=== PATIENT | female | born 1990 | race Caucasian/White ===

== ENCOUNTER 2021-06-16 16:00 | Outpatient (CLI) | payer OTHER, SELFPAY ==
--- NOTE | ~2021-06-16 | US_ITS ---
EXAMINATION: US OB /maternal detail DATE: 06/16/2021 17:39 INDICATION: Encounter for screening. TECHNIQUE: Real-time ultrasound of the pelvis was performed. COMPARISON: None. FINDINGS: There is a single living fetus in variable presentation. The placenta is posterior, 4.0 cm from the cervix. heart rate is 149 beats per minute (bpm). The amniotic fluid volume is subjectively nor mal. The cervical length is normal on transabdominal images. The following biometric data were obtained: Biparietal diameter (BPD): 4.5 cm; head circumference (HC): 17.1 cm; abdominal circumference (AC): 14 .0 cm; femur length (FL): 3.1 cm. These measurements are concordant. Estimated weight is 300 g +/- 45 g, which correlates with the 37th percentile when 11/05/21 is u sed as estimated date of delivery. As single measurements, these parameters are each equal to the following estimated gestational ages: BPD: 19 weeks 4 days. HC: 19 weeks 5 days. AC: 19 weeks 2 days. FL: 19 weeks 5 days. estimated gestational age based solely on measurements from this exam is 19 weeks 4 days +/- 1 weeks 3 days. The cerebral ventricles, cerebellum, cisterna magna, nuchal fold, lip, and visualized portions of the spine are normal. The heart is normal. The diaphragm, stomach, kidneys, and bladder are normal. Ther e are two umbilical arteries to yield a 3-vessel cord. The cord insertion is normal. IMPRESSION: 1. Single living fetus in variable presentation. 2. Estimated weight is 300 g +/- 45 g, which correlates with the 37th percentile when 11/05/21 is used as estimated date of delivery. 3. Normal anatomic survey. Reviewed, dictated and finalized at location A. [facility] IMPRESSION: 1. Single living fetus in variable presentation. 2. Estimated weight is 300 g +/- 45 g, which correlates with the 37th pe rcentile when 11/05/21 is used as estimated date of delivery. 3. Normal anatomic survey.
== END 2021-06-16 16:01 | disposition home or self-care (01) ==
LOC: ANHIMG 16:04
PROVIDERS: PCP Internal Medicine; Visit Provider Obstetrics & Gynecology
DX: Z34.92 Encounter for supervision of normal pregnancy, unspecified, second trimester (principal); Z3A.19 19 weeks gestation of pregnancy
CPT/HCPCS: 76805